=== PATIENT | male | born 1970 | race Caucasian/White ===

== ENCOUNTER 2023-06-14 13:17 | Emergency (ER) | payer OTHER ==
[~2023-06-14] VITALS: Ht 180.3 cm; Wt 115.2 kg
[2023-06-14 13:22] VITALS: BP 142/91; PULSE 90; RESP 18; TEMP 97.4; O2SAT 98
[2023-06-14] MEDS: KETOROLAC 30 MG/ML VIAL IM ONE (14:40)
[2023-06-14] MEDS ORDERED: NAPR-1704 PO (14:55)
[2023-06-14] MEDS ORDERED: DICL100G32 TP (14:55)
[2023-06-14] MEDS ORDERED: LID5T TP (14:55)
== END 2023-06-14 15:13 | disposition home or self-care (01) ==
LOC: MED 13:17
DX: M25.562 Pain in left knee (principal); Z79.1 Long term (current) use of non-steroidal anti-inflammatories (NSAID); Z79.899 Other long term (current) drug therapy
CPT/HCPCS: 73562; 96372; 99283; J1885